=== PATIENT | female | born 2000 | race Caucasian/White ===

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

== ENCOUNTER → 2020-04-07 | Outpatient (CLI) | payer MEDICAID ==
--- NOTE | 2020-04-07 15:47 | RADIOLOGY REPORT (SQ) ---
EXAM DESCRIPTION: U/S OB TRANSVAGINAL W/O DOP IMAGES COMPLETED DATE/TIME: 04/07/2020 3:26 pm REASON FOR STUDY: Z32.01 ENCOUNTER FOR TEST, RESULT POSITIVE Z32.01 ENCOUNTER FOR PREGNAN CY TEST, RESULT POSITIVE COMPARISON: None. TECHNIQUE: Transvaginal static and realtime grayscale images acquired of the pelvis. Additional wade cted spectral and color Doppler images recorded. All images stored on PACs. bHCG: Unknown CLINICAL DATES: LMP 02/17/2020 7 weeks 1 day LIMITATIONS: None. FINDINGS: FETUS: Single Living intrauterine . ULTRASOUND EGA: 6 weeks 0 days ULTRASOUND LAURE: 12/01/2020 EFW: Not applicable less than 20 weeks. CRL: 0.2 cm FHR: flicker. Active heart rate cannot be measured. SURVEY: Too early to assess. AMNIOTIC FLUID: Adequate amount. PLACENTA: Not yet developed due to early gestation. SUBCHORIONIC BLEED: Yes SIZE OF BLEED: 9 x 15 x 3 mm UTERUS: No masses. No anomalies. CERVICAL LENGTH: 2.2 cm. Closed. RIGHT ADNEXA: Normal ovary with normal vascular flow. 3.3 x 2 x 1.6 cm No adnexal free fluid. No adnexal masses. LEFT ADNEXA: Normal ovary with normal vascular flow. 3.5 x 2.5 x 2 cm. There appears to be a 24 x 1 5 x 19 mm corpus luteum. No adnexal free fluid. No adnexal masses. FREE FLUID: None. OTHER: No other significant finding. IMPRESSION: LIVING INTRAUTERINE . EGA 6 weeks 0 days. Accurate heart rate could not be obtained. Follow-up as clinically indica breezy. Trimester of : First trimester - 0 to 13 weeks. TECHNICAL DOCUMENTATION: JOB ID: [id number] 2010 [employer]- All Rights Reserved rev Reading location - IP/workstation name: [email or web address]
== END ==
LOC: RAD 14:25
PROVIDERS: ATTEND Nurse Practitioner Family
DX: O34.81 Maternal care for other abnormalities of pelvic organs, first trimester (principal); N83.12 Corpus luteum cyst of left ovary; Z3A.01 Less than 8 weeks gestation of pregnancy
CPT/HCPCS: 76817

== ENCOUNTER → 2020-04-21 | Outpatient (CLI) | payer MEDICAID | LOC: OD 07:54 | PROVIDERS: ATTEND Obstetrics & Gynecology Gynecology | DX: O36.80X0 Pregnancy with inconclusive fetal viability, not applicable or unspecified (principal) | CPT/HCPCS: 36415; 84702 ==

== ENCOUNTER → 2020-04-26 | Outpatient (CLI) | payer MEDICAID ==
[2020-04-26 09:04] LABS: ABSOLUTE EOSINOPHILS # (AUTO) 0.2 10^3/uL (0.0-0.6); ABSOLUTE MONOCYTES (AUTO) 0.6 10^3/uL (0.1-1.4); ABSOLUTE NEUT (AUTO) 3.5 10^3/uL (1.7-8.2); BASOPHILS % (AUTO) 0.7 % (0-2); EOSINOPHILS % (AUTO) 2.4 % (0-6); HEMATOCRIT 40.4 % (36.0-47.0); HEMOGLOBIN 13.6 g/dL (12.0-15.5); LYMPHOCYTES % (AUTO) 31.6 % (13-45); MEAN CORPUSCULAR HEMOGLOBIN 30.4 pg (27.0-33.4); MEAN CORPUSCULAR HGB CONC 33.8 g/dL (32.0-36.0); MEAN CORPUSCULAR VOLUME 90 fl (80-97); MONOCYTES % (AUTO) 9.1 % (3-13); PLATELET COUNT 297 10^3/uL (150-450); RED BLOOD COUNT 4.48 10^6/uL (3.72-5.28); RED CELL DISTRIBUTION WIDTH 12.8 % (11.5-14.0); SEGMENTED NEUTROPHILS % (AUTO) 56.2 % (42-78); TOTAL CELLS COUNTED % (AUTO) 100 %; WHITE BLOOD COUNT 6.2 10^3/uL (4.0-10.5)
[2020-04-26 09:31] LABS: ALBUMIN 4.8 g/dL (3.5-5.0); ALKALINE PHOSPHATASE 51 U/L (38-126); ASPARTATE AMINO TRANSFERASE 21 U/L (14-36); BILIRUBIN,TOTAL 0.8 mg/dL (0.2-1.3); TOTAL PROTEIN 7.9 g/dL (6.3-8.2)
== END ==
LOC: OD 08:00
PROVIDERS: ATTEND Obstetrics & Gynecology
DX: O02.1 Missed abortion (principal); Z13.818 Encounter for screening for other digestive system disorders; Z13.0 Encounter for screening for diseases of the blood and blood-forming organs and certain disorders involving the immune mechanism
CPT/HCPCS: 36415; 80076; 84702; 85025

== ENCOUNTER → 2020-05-03 | Outpatient (CLI) | payer MEDICAID | LOC: OD 08:47 | PROVIDERS: ATTEND Specialist | DX: O00.80 Other ectopic pregnancy without intrauterine pregnancy (principal) | CPT/HCPCS: 36415; 84702 ==

== ENCOUNTER → 2020-06-07 | Outpatient (CLI) | payer MEDICAID | LOC: OD 08:17 | PROVIDERS: ATTEND Specialist | DX: O02.1 Missed abortion (principal); Z3A.00 Weeks of gestation of pregnancy not specified | CPT/HCPCS: 36415; 84702 ==

== ENCOUNTER → 2020-06-09 | Outpatient (CLI) | payer MEDICAID | LOC: OD 08:56 | PROVIDERS: ATTEND Obstetrics & Gynecology | DX: O02.1 Missed abortion (principal); Z3A.00 Weeks of gestation of pregnancy not specified | CPT/HCPCS: 36415; 84702 ==

== ENCOUNTER → 2020-06-12 | Outpatient (CLI) | payer MEDICAID | LOC: OD 08:04 | PROVIDERS: ATTEND Obstetrics & Gynecology | DX: O36.80X0 Pregnancy with inconclusive fetal viability, not applicable or unspecified (principal); Z3A.00 Weeks of gestation of pregnancy not specified | CPT/HCPCS: 36415; 84702 ==

== ENCOUNTER 2020-07-17 12:05 | Emergency (ER) | payer MEDICAID ==
[2020-07-17] MEDS ORDERED: FAMOTIDINE INJ/PF 20 MG/2 ML SDV IV ONE (13:16)
[2020-07-17] MEDS ORDERED: METOCLOPRAMIDE HCL INJ/PF 10 MG/2 ML SDV IV ONE (13:16)
[2020-07-17] MEDS ORDERED: RINGERS SOLUTION,LACTATED 1,000 ML IV ONE (13:17)
--- NOTE | 2020-07-17 13:19 | ER Document Report ---
ED Medical Screen (RME) - General Chief Complaint: Vomiting Stated Complaint: DEHYDRATION Time Seen by Provider: 07/17/20 13:11 Primary Care Provider: SHANNA HOOPER MD [Primary Care Provider] - Follow up as needed TRAVEL OUTSIDE OF THE [place] IN LAST 30 DAYS: No - HPI Notes: 07/17/20 13:17 20-year-old female to the emergency department with complaints of nausea and vomiting that has gotten progressively worse over the past several days. She is 10 weeks . She states that she had had some vomiting in the but not this significant. She states every time she tries to eat or drink something it comes right back up. She sees Dr. Hooper as her [employer]. She has had a confirmed IUP on ultrasound. She states she is not had any vaginal bleeding. She denies any fevers, chills, diarrhea, sick contacts, cough. She states that Dr. Hooper did call her in [facility] but she is waiting for Medicaid to approve it. She states that she called the office this morning about her symptoms and they advised her to come to the ER for hydration. She is a G3, P0 spontaneous AB 2. I performed a brief medical screening exam on the patient determined that the patient needs further evaluation and management by main side provider. I have placed initial orders to help expedite care. - Related Data Allergies/Adverse Reactions: No Known Allergies Allergy (Verified 07/17/20 13:09) Home Medications: levothyroxine Past Medical History - Social History Frequency of alcohol use: None Drug Abuse: None Renal/ Medical History: Denies: Hx Peritoneal Dialysis Physical Exam - Vital signs Vitals: Temp Pulse Resp BP Pulse Ox 98.3 F 73 16 132/89 H 100 07/17/20 12:42 07/17/20 12:42 07/17/20 12:42 07/17/20 12:42 07/17/20 12:42 Course - Vital Signs Vital signs: Temp Pulse Resp BP Pulse Ox 98.3 F 73 16 132/89 H 100 07/17/20 12:42 07/17/20 12:42 07/17/20 12:42 07/17/20 12:42 07/17/20 12:42 Doctor's Discharge - Discharge Referrals: SHANNA HOOPER MD [Primary Care Provider] - Follow up as needed
[2020-07-17 14:31] LABS: APPEARANCE,URINE CLEAR; BILIRUBIN,URINE NEGATIVE (NEGATIVE); COLOR,URINE YELLOW; GLUCOSE, URINE NEGATIVE (NEGATIVE); KETONES,URINE 20 mg/dL (NEGATIVE); PROTEIN,URINE NEGATIVE (NEGATIVE); UROBILINOGEN,URINE NEGATIVE mg/dL (<2.0)
--- NOTE | 2020-07-17 16:22 | ER Document Report ---
ED GI/ - General Chief Complaint: Vomiting Stated Complaint: DEHYDRATION Time Seen by Provider: 07/17/20 13:11 Primary Care Provider: SHANNA HOOPER MD [ACTIVE STAFF] - Follow up as needed Mode of Arrival: Ambulatory Information source: Patient Notes: 20-year-old female 3 para 0 with 2 previous miscarriages most recently in March presents to the emergency room for persistent nausea and vomiting. Patient states that she spoke with her [employer] office this morning which is women's care and was referred to the emergency room for IV hydration and antiemetics. States they did call her in a prescription for diplegia's and she is waiting for Medicaid to approve it. Is not currently on any prescription antiemetics for her vomiting. She denies any abdominal pain. No vaginal bleeding, no vaginal discharge. Urine symptoms. No recent travel. No ill c ontacts. No COVID-19 exposure. States her OB care is up-to-date with a recent ultrasound 2 days ago that she states was showed a normal intrauterine . TRAVEL OUTSIDE OF THE [place] IN LAST 30 DAYS: No - HPI heart tones (bpm): 122 - Related Data Allergies/Adverse Reactions: diphenhydramine [From Benadryl] Adverse Reaction (Verified 07/17/20 15:24) Home Medications: levothyroxine Past Medical History - General Information source: Patient - Social History Smoking Status: Never Smoker Frequency of alcohol use: None Drug Abuse: None Family History: Reviewed & Not Pertinent Renal/ Medical History: Denies: Hx Peritoneal Dialysis Review of Systems - Review of Systems Constitutional: No symptoms reported EENT: No symptoms reported Cardiovascular: No symptoms reported Respiratory: No symptoms reported Gastrointestinal: Nausea, Vomiting. denies: Abdominal pain, Diarrhea, Con stipation Genitourinary: No symptoms reported Female Genitourinary: Musculoskeletal: No symptoms reported Skin: No symptoms reported Neurological/Psychological: No symptoms reported -: Yes All other systems reviewed and negative Physical Exam - Vital signs Vitals: Temp Pulse Resp BP Pulse Ox 98.3 F 73 16 132/89 H 100 07/17/20 12:42 07/17/20 12:42 07/17/20 12:42 07/17/20 12:42 07/17/20 12:42 - Notes Notes: GENERAL: Mild acute distress, non-toxic appearance. HEAD: Normal with no signs of head trauma. EYES: PERRLA, EOMI, conjunctiva normal, no discharge. EARS: Hearing grossly intact. NOSE: Normal. THROAT: Oropharynx is normal. NECK: Normal range of motion, no tenderness, supple, no lymphadenopathy, No adenopathy, no JVD. CHEST: Clear breath sounds bilaterally. No wheezes, rales, or rhonchi. CARDIAC: Regular rate and rhythm. S1 and S2, without murmurs, gallops, or rubs. VASCULAR: No Edema. Peripheral pulses normal and equal in all extremities. ABDOMEN: Normal and soft with no tenderness, no masses or pulsatile masses. No organomegaly. Positive bowel sounds x4. No CVA tenderness noted bilaterally. GASTROINTESTINAL: Bowel sounds normal LYMPATHTIC: No lymphadenopathy noted. MUSCULOSKELETAL: Good range of motion of all major joints. Extremities without clubbing, cyanosis or edema. NEUROLOGICAL: Alert and oriented x 3. No focal sensory or strength deficits. Speech normal. Follows commands appropriately. PSYCHIATRIC: Normal Affect, judgement and mood. SKIN: Normal appearance with no rashes or lesions. Course - Re-evaluation Re-evalutation: 07/17/20 17:39 Patient is resting easily arousable. No acute distress noted. Reviewed all lab results with patient and family. heart tones 122 by nursing staff as documented. Will attempt p.o. challenge and reevaluate. 07/17/20 18:12 Patient continues to be resting comfortably. She is able to tolerate p.o. fluids. Will discharge home with a prescription for Reglan. She is to follow- up outpatient with her [employer] as scheduled. Patient was given strict return to the emergency room guidelines. Return for any new or worsening symptoms. All questions were answered. Patient verbalized understanding and agrees with plan of care. - Vital Signs Vital signs: Temp Pulse Resp BP Pulse Ox 97.8 F 77 16 126/68 H 100 07/17/20 18:34 07/17/20 18:34 07/17/20 18:34 07/17/20 18:34 07/17/20 18:34 - Laboratory Result Diagrams: 07/17/20 16:22 07/17/20 16:22 Laboratory results interpreted by me: 07/17/20 07/17/20 07/17/20 13:57 16:22 16:22 WBC 11.2 H MCHC 36.4 H Absolute Neuts (auto) 8.7 H Seg Neutrophils % 78.1 H Sodium 136.9 L Calcium 10.5 H Total Protein 8.7 H Albumin 5.2 H Urine Ketones 20 H Urine Ascorbic Acid 20 H Discharge - Discharge Clinical Impression: Hyperemesis Condition: Stable Disposition: HOME, SELF-CARE Instructions: Hyperemesis Gravidarum ([facility]), Intravenous (IV) Fluids ([facility]), Reglan ([facility]) Additional Instructions: Frequent small meals. Reglan as prescribed. Outpatient follow-up with your [employer] as scheduled. Return to the emergency room for any new or worsening symptoms. Prescriptions: Metoclopramide HCl [Reglan 10 mg Tablet] 10 mg PO ACHS #30 tablet Referrals: SHANNA HOOPER MD [ACTIVE STAFF] - Follow up as needed
[2020-07-17 16:48] LABS: ABSOLUTE LYMPHOCYTES (AUTO) 1.8 10^3/uL (0.5-4.7); ABSOLUTE MONOCYTES (AUTO) 0.6 10^3/uL (0.1-1.4); ABSOLUTE NEUT (AUTO) 8.7 10^3/uL (1.7-8.2); BASOPHILS % (AUTO) 0.2 % (0-2); EOSINOPHILS % (AUTO) 0.3 % (0-6); HEMATOCRIT 41.9 % (36.0-47.0); HEMOGLOBIN 15.3 g/dL (12.0-15.5); LYMPHOCYTES % (AUTO) 16.4 % (13-45); MEAN CORPUSCULAR HEMOGLOBIN 31.9 pg (27.0-33.4); MEAN CORPUSCULAR HGB CONC 36.4 g/dL (32.0-36.0); MEAN CORPUSCULAR VOLUME 88 fl (80-97); PLATELET COUNT 265 10^3/uL (150-450); RED BLOOD COUNT 4.78 10^6/uL (3.72-5.28); RED CELL DISTRIBUTION WIDTH 12.6 % (11.5-14.0); SEGMENTED NEUTROPHILS % (AUTO) 78.1 % (42-78); TOTAL CELLS COUNTED % (AUTO) 100 %; WHITE BLOOD COUNT 11.2 10^3/uL (4.0-10.5)
[2020-07-17 17:11] LABS: BLOOD UREA NITROGEN 8 mg/dL (7-20); CALCIUM 10.5 mg/dL (8.4-10.2); GLUCOSE 76 mg/dL (75-110)
[2020-07-17 17:12] LABS: ALBUMIN 5.2 g/dL (3.5-5.0); ALKALINE PHOSPHATASE 62 U/L (38-126); ANION GAP 14 (5-19); ASPARTATE AMINO TRANSFERASE 22 U/L (14-36); BILIRUBIN,DIRECT 0.2 mg/dL (0.0-0.4); BILIRUBIN,TOTAL 1.1 mg/dL (0.2-1.3); CARBON DIOXIDE 22 mmol/L (22-30); CHLORIDE 101 mmol/L (98-107); POTASSIUM 3.8 mmol/L (3.6-5.0); TOTAL PROTEIN 8.7 g/dL (6.3-8.2)
[2020-07-17 18:35] VITALS: BP 126/68
== END 2020-07-17 18:35 | disposition home or self-care (01) ==
LOC: ER 12:05
DX: O21.9 Vomiting of pregnancy, unspecified (principal); Z79.899 Other long term (current) drug therapy; Z3A.10 10 weeks gestation of pregnancy
CPT/HCPCS: 99284; 96361; 96374; 96375; 36415; 85025; 80053; 81001; J2765; J7120; S0028